=== PATIENT | male | born 1965 | race Two or more races ===

== ENCOUNTER → 2017-03-17 | Outpatient (CLI) | payer OTHER ==
--- NOTE | 2017-03-17 15:21 | REP ---
RIGHT LOWER LEG: AP and lateral views of the right lower leg are performed. No fracture, dislocation, or intrinsic bone disease is seen. There is posterior calcaneal spurring. A few metallic BBs are seen in the soft tissues posteriorly. IMPRESSION: No acute fracture or dislocation. Signed by Marco Palma MD 03/17/2017 04:44 P
== END ==
LOC: M LRY 14:33
PROVIDERS: ATTEND Physician Assistant
DX: M79.661 Pain in right lower leg (principal)
CPT/HCPCS: 73590; G0463